=== PATIENT | female | born 1995 | race Caucasian/White ===

== ENCOUNTER 2018-02-20 02:11 | Emergency (ER) | payer OTHER ==
--- NOTE | 2018-02-20 03:28 | ED Physician Documentation ---
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 denies: fever, chills, vomiting, bloody emesis Exacerbated by: nothing Relieved by: nothing Further Comments: yes (22 year old female patient presents with complaint of abdominal pain and diarrhea. Patient reports known gall stones. Reports 2 episodes of diarrhea today. C/O RUQ and maria teresa-umbilical pain. Denies fever or chills, c/o nausea.) - ROS CONST: no problems GI/: none CVS/RESP: none EYES/ENT: none MS/SKIN/LYMPH: none NEURO/PSYCH: none - SOCIAL HX Smoking History: cigarettes - FAMILY HX Family History: denies: none - PAST HX Past History: none Ischemic Bowel Risk Factors: none Other History: none Home Medications: Ambulatory Orders Medication Instructions Recorded Ciprofloxacin HCl [Cipro] 500 mg PO BID #14 tablet 02/20/18 Allergies/Adverse Reactions: Allergies Allergy/AdvReac Type Severity Reaction Status Date / Time ibuprofen AdvReac Hives Verified 02/20/18 02:54 - VITAL SIGNS Vital Signs: Vital Signs Temp Pulse Resp BP Pulse Ox 98.7 F 69 14 126/78 100 02/20/18 02:12 02/20/18 02:12 02/20/18 03:56 02/20/18 03:56 02/20/18 02:12 ED Results Lab/Radiology - Lab Results Lab Results: Lab Results 02/20/18 02/20/18 02/20/18 03:12 02:54 02:54 WBC RBC Hgb Hct MCV MCH MCHC RDW Plt Count Neut % (Auto) Lymph % (Auto) [place] % (Auto) Eos % (Auto) Baso % (Auto) Neut # (Auto) Lymph # (Auto) [place] # (Auto) Eos # (Auto) Baso # (Auto) Sodium 144 mmol/L mmol/L (136-145) Potassium 3.5 mmol/L mmol/L (3.5-5.1) Chloride 106 mmol/L mmol/L (98-107) Carbon Dioxide 25 mmol/L mmol/L (22-30) BUN 7 mg/dL mg/dL (7-17) Creatinine 0.60 mg/dL mg/dL (0.52-1.04) Estimated Creat Clear 146 Est GFR ( Amer) > 60 (60 - ) Est GFR (Non-Af Amer) > 60 (60 - ) Glucose 95 mg/dL mg/dL (74-106) Calcium 9.2 mg/dL mg/dL (8.4-10.2) Total Bilirubin 0.2 mg/dL mg/dL (0.2-1.3) AST 23 U/L U/L (15-46) ALT 13 U/L U/L (13-69) Alkaline Phosphatase 96 U/L U/L (38-126) Total Protein 7.8 g/dL g/dL (6.3-8.2) Albumin 4.2 g/dL g/dL (3.5-5.0) Lipase 111 U/L U/L (23-300) Serum HCG, Qual Negative (NEGATIVE) Urine Color Yellow (YELLOW) Urine Appearance Cloudy H (CLEAR) Urine pH 6.5 (5.0 - 8.0) Ur Specific [place] 1.025 (1.010-1.030) Urine Protein Negative mg/dL mg/dL (NEGATIVE) Urine Ketones Trace mg/dL H mg/dL (NEGATIVE) Urine Occult Blood Negative (NEGATIVE) Urine Nitrite Positive H (NEGATIVE) Urine Bilirubin Negative (NEGATIVE) Urine Urobilinogen 1.0 Eu Eu (0.2-1.0) Ur Leukocyte Esterase Trace H (NEGATIVE) Urine Glucose Negative mg/dL mg/dL (NEGATIVE) 02/20/18 02:54 WBC 5.10 K/ul K/ul (4.00-12.00) RBC 4.54 M/ul M/ul (3.90-5.20) Hgb 13.6 g/dL g/dL (12.0-16.0) Hct 41.4 % % (34.5-46.5) MCV 91.0 fl fl (80.0-100.0) MCH 30.0 pg pg (28.0-34.0) MCHC 32.9 g/dL g/dL (30.0-36.0) RDW 12.0 % % (11.3-14.3) Plt Count 239 K/mm3 K/mm3 (130-400) Neut % (Auto) 36.2 % L % (39.0-79.0) Lymph % (Auto) 48.3 % % (16.0-50.0) [place] % (Auto) 7.7 % % (0.0-11.0) Eos % (Auto) 7.3 % H % (0.0-6.8) Baso % (Auto) 0.5 (0.0-1.5) Neut # (Auto) 1.9 # k/uL # k/uL (1.4-7.7) Lymph # (Auto) 2.5 # k/uL # k/uL (0.6-4.0) [place] # (Auto) 0.4 # k/uL # k/uL (0.0-0.9) Eos # (Auto) 0.4 # k/uL # k/uL (0.0-0.6) Baso # (Auto) 0.0 # k/uL # k/uL (0.0-0.5) Sodium Potassium Chloride Carbon Dioxide BUN Creatinine Estimated Creat Clear Est GFR ( Amer) Est GFR (Non-Af Amer) Glucose Calcium Total Bilirubin AST ALT Alkaline Phosphatase Total Protein Albumin Lipase Serum HCG, Qual Urine Color Urine Appearance Urine pH Ur Specific [place] Urine Protein Urine Ketones Urine Occult Blood Urine Nitrite Urine Bilirubin Urine Urobilinogen Ur Leukocyte Esterase Urine Glucose - Orders Orders: ED Orders Category Date Time Status Place IV Lock 1T Care 02/20/18 02:49 Active CBC/PLATELET/DIFF Stat Lab 02/20/18 02:54 Completed CMP Stat Lab 02/20/18 02:54 Completed LIPASE Stat Lab 02/20/18 02:54 Completed SERUM HCG Stat Lab 02/20/18 02:54 Completed UA MACRO DIP ONLY Stat Lab 02/20/18 03:12 Completed Abdominal Pain Physical Exam - Physical Exam General Appearance: no acute distress RESPIRATORY: no resp distress, chest non-tender, breath sounds normal CVS: reg rate & rhythm, heart sounds normal, equal pulses, no murmur, no gallop, PMI nml, no JVD, no friction rub, 24 ABDOMEN: soft, no organomegaly, normal bowel sounds, no abdominal bruit, no distension SKIN: normal color, warm/dry, NR, INT, PAL, DR EXTREMITIES: non-tender, normal range of motion, no evidence of injury, no edema, J, 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, CN's nml as tested, motor nml, sensation nml Vital Signs: Vital Signs Temp Pulse Resp BP Pulse Ox 98.7 F 69 14 126/78 100 02/20/18 02:12 02/20/18 02:12 02/20/18 03:56 02/20/18 03:56 02/20/18 02:12 Discharge Clincal Impression: UTI (urinary tract infection) Qualifiers: Urinary tract infection type: site unspecified Hematuria presence: without hematuria Qualified Code(s): N39.0 - Urinary tract infection, site not specified Cholelithiases Qualifiers: Cholelithiasis location: gallbladder Cholecystitis presence: without cholecystitis Biliary obstruction: without biliary obstruction Qualified Code(s): K80.20 - Calculus of gallbladder without cholecystitis without obstruction Prescriptions: Ciprofloxacin HCl [Cipro] 500 mg PO BID #14 tablet Referrals: Sol Chatman FNP [Primary Care Provider] - 2 Days Additional Instructions: 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 Avoid caffeinated beverages You may want to try Azo over the counter for urinary pain. Follow package directions Cranberry juice will help with symptoms. Tylenol every 4 hours as needed for pain/fever or ibuprofen every 6 hours as needed for pain and fever See your primary care provider for a repeat UA 48 hours after completing your antibiotic. Make a follow up appointment with a general surgeon. You need to have your gall bladder removed. [place] diet; low fat Condition: Stable Disposition: 01 HOME, SELF-CARE Decision to Admit: NO Decision Time: 03:45
[2018-02-20 04:04] VITALS: BP 126/78
[2018-02-20 07:36] LABS: BASOPHILS % 0.5 (0.0-1.5); EOSINOPHILS % 7.3 % (0.0-6.8); MONOCYTES % 7.7 % (0.0-11.0)
[2018-02-20 07:37] LABS: NEUTROPHILS # 1.9 # k/uL (1.4-7.7)
[2018-02-20 07:43] LABS: eGFR (Non-African) > 60
[2018-02-20 08:18] LABS: APPEARANCE,URINE CLOUDY (CLEAR); COLOR,URINE YELLOW (YELLOW)
[2018-02-20 08:19] LABS: OCCULT BLOOD,URINE NEGATIVE (NEGATIVE); PH URINE 6.5 (5.0 - 8.0)
== END 2018-02-20 03:50 | disposition home or self-care (01) ==
LOC: ED 02:11
DX: N39.0 Urinary tract infection, site not specified (principal); K80.20 Calculus of gallbladder without cholecystitis without obstruction
CPT/HCPCS: 36415; 80053; 81002; 83690; 84703; 85025; 99282; 99283; S1016